=== PATIENT | male | born 1940 | race Caucasian/White ===

== ENCOUNTER 2022-04-28 07:48 | Day surgery (SDC) | payer OTHER ==
--- NOTE | 2022-04-23 13:33 | RAD REPORT ---
EXAM DESCRIPTION: RAD - Chest Pa And Lat (2 Views) - 04/23/2022 1:21 pm CLINICAL HISTORY: Pre op pending TURP Chest pain. COMPARISON: No comparisons TECHNIQUE: PA and lateral views of the chest were obtained. FINDINGS: The lungs are hyperexpanded compatible with COPD. The heart is upper limit of normal in si ze. No fracture or aggressive bony process. IMPRESSION: COPD without acute process identified.
[2022-04-23 13:46] LABS: Absolute Lymphocytes (CBC) 1.6 K/uL (0.7-4.9); Hematocrit 45.6 % (39.6-49.0); Lymphocytes % 24.1 % (15.3-44.8); MPV 9.3 fL (7.6-11.3); RBC Red Blood Cell Count 5.18 M/uL (4.33-5.43)
[2022-04-23 13:50] LABS: Protime INR 1.05
[2022-04-23 13:55] LABS: Potassium 4.3 mmol/L (3.5-5.1)
[2022-04-23 14:00] LABS: SARS-CoV-2 Antigen Rapid Res Negative (Negative)
[~2022-04-28 07:48] MED LIST: AMPICILLIN SODIUM 2 GM in NA CHLORIDE 0.9% 100 ML IVPB SCH; Gentamicin Inj 180 MG in NA CHLORIDE 0.9% 100 ML IV SCH
[2022-04-28] MEDS ORDERED: Ringers Lactate 1,000 ML IV ONE (08:16)
[2022-04-28] MEDS ORDERED: FENTANYL CITR 100 MCG/2 ML ONE (10:24)
[2022-04-28] MEDS ORDERED: LIDOCAINE 1% MPF 5 ML VIAL ONE ×2 (10:24→11:49)
[2022-04-28] MEDS ORDERED: propofoL 200 MG/20 ML VIAL IV ONE (10:24)
[2022-04-28] MEDS ORDERED: ONDANSETRON 4 MG/2 ML VIAL ONE (10:25)
[2022-04-28] MEDS ORDERED: ROCURONIUM 50 MG/5 ML VIAL IV ONE (10:25)
[2022-04-28] MEDS ORDERED: GLYCOPYRROLATE 0.2 MG/ML SYR ONE (11:06)
[2022-04-28] MEDS ORDERED: CODEINE 30MG/APAP 300MG TAB PO PRN (13:54)
[2022-04-28] MEDS ORDERED: OPIUM/BELLADONNA SUPPOS (30-16.2 MG) PR ONE (13:54)
--- NOTE | 2022-04-28 14:33 | OP ---
Surgeon: NANCY MCDANIEL Preoperative Diagnoses: 1.BPH with lower urinary tract obstructive symptoms. 2.Acute urinary retention. Postoperative Diagnoses: 1.BPH with lower urinary tract obstructive symptoms. 2.Acute urinary retention. Principle Procedure: Transurethral resection of the prostate using the bipolar device. Indication For Procedure: Mr. Mccartney is an 82-year-old gentleman, who [facility] experienced acute urinary retention and requiring catheter placement. He had previously undergo ne a TURP in [address] López and underwent outpatient evaluation revealing significant residual l ateral lobar hypertrophy, particularly in the apical mid gland. As a result, he was counseled on opt ions to either proceed directly to surgical therapy or consider urodynamic evaluation first. He elec levy to proceed with surgical therapy. Procedure In Detail: The patient was consented in the preoperative holding area before being transfe rred to operative suite where general anesthesia was induced. He was given ampicillin 2 g and gentam icin approximately 2 mg/kg IV antimicrobial prophylaxis and pneumo boots were provided for DVT prophy laxis. He was placed in the lithotomy position, padded and secured to the table appropriately. His genitalia were prepped using Hibiclens and he was draped in standard fashion. The case was begun usi ng urethral sounds to dilate the meatus and fossa navicularis to 30-Ivorian. Then utilizing the visua l obturator and the 26-Ivorian resectoscope sheath, the scope was used to traverse the urethra and ent er his bladder with ease. As had been previously noted on outpatient cystoscopy, there was significa nt elevation of a median bar with intravesical projection of some prostatic tissue that was undermini ng the trigone and elevating the ureteral orifices. The ureteral orifices were difficult to visualiz e because of this and the prior resection performed in that area. There was significant residual lat eral lobar hypertrophy, particularly in the region of the apical mid gland while the bladder neck was largely patent. There was a moderate degree of anterior overhang as well. As a result, I began res ection by identifying the left ureteral orifice and marking the tissue distal to it. I then progress ed medially across the trigone until the right ureteral orifice was visualized and I again marked the tissue distal to that resecting the elevated component of the prostatic tissue abutting the trigone away in the process. I then continued the resection of the remainder of that elevated median bar all the way down to the level of the verumontanum until a smooth trough was created. Continuing the res ection into the lateral lobar hypertrophy, initially I started at the bladder neck where the intraves ical projecting component was resected. I then continued the resection to involve the anterior zone of the prostate intravesically projecting. Once this was leveled with the bladder, I then continued the resection more distally within the prostatic urethra removing the mid gland lateral lobar hypertr ophy and any anterior lobar hypertrophy intraluminally projecting. I then turned my attention to the apex where situated right at the level of the verumontanum, I resected the right lateral lobar hyper trophy first and then resected the left lateral lobar hypertrophy which was interdigitating and overl apping at the apex. This was resected until the lateral lobes were no longer overlapping and merely just kissing. I then ensured that the remainder of the trough from the bladder neck through to the v erumontanum both inferiorly, laterally, and anteriorly was smooth with no intraluminally obstructing tissue. Once this was completed, I ensured all prostate chips were Ellik evacuated or directly visua lized and removed from the bladder. Careful fulguration was performed at multiple steps along the re section, but in the end, with the bladder decompressed, I carefully fulgurated to ensure complete hem ostasis. In the end, with the bladder decompressed and no fluid in flow, with no venous oozing occur ring, I then left the bladder full and removed the resectoscope. I surveyed the urethra on the way o ut and removed any prostatic chips that fell into the urethra. I then passed a 24-Ivorian 3-way Reddy catheter via the urethra into the bladder with ease and placed 30 cc of sterile water in the balloon . The catheter was placed to moderate traction and CBI with normal saline, and he was taken out of t he lithotomy position. He was then awakened from general anesthesia, transferred to a stretcher, and then transferred to the recovery room in good condition. Complications: None. Discharge Disposition: He should follow up in the Urology Clinic in 3-5 days for catheter removal an d voiding trial. I will discharge him with at least 5-7 days of oral antimicrobial therapy as well a s some pain medication. Subsequent followup can be established between 1-3 months depending on his s ymptomatology and the success of his voiding. CYNTHIA/DEEPTHI Voice ID: [id number] Report ID: [id number]
[2022-04-28 15:06] VITALS: BP 142/74; TEMP 96.5; O2SAT 99
== END 2022-04-28 15:18 | disposition home or self-care (01) ==
LOC: OR 07:48
PROVIDERS: ATTEND Urology
PROC: 0VT08ZZ Resection of Prostate, Via Natural or Artificial Opening Endoscopic (ICD-10-PCS; principal; 2022-04-28 09:15)
DX: N40.1 Benign prostatic hyperplasia with lower urinary tract symptoms (principal); R33.9 Retention of urine, unspecified; Z20.822 Contact with and (suspected) exposure to COVID-19
CPT/HCPCS: 87088; 85025; 87086; 80048; 36415; 85610; 88305; 71046; 87811; 52601; J2704; J1580; J3010; J7120; J2405; J0290

== ENCOUNTER 2023-06-22 08:15 | Day surgery (SDC) | payer OTHER ==
--- NOTE | 2023-06-16 14:39 | RAD REPORT ---
EXAM DESCRIPTION: RAD - Chest Pa And Lat (2 Views) - 06/16/2023 2:28 pm CLINICAL HISTORY: PRE OP Chest pain. TECHNIQUE: PA and lateral views of the chest were obtained. FINDINGS: The lungs are hyperexpanded compatible with COPD. The heart is upper limit of normal in si ze. No fracture or aggressive bony process. IMPRESSION: COPD without acute process identified. The USPSTF recommends annual screening for lung cancer with low-dose CT (LDCT) in adults aged 50 to 80 years who have a 20 pack-year smoking history and currently smoke or have quit within the past 15 years.
[2023-06-16 15:01] LABS: Protime INR 1.05
[2023-06-16 15:02] LABS: Absolute Lymphocytes (CBC) 1.5 K/uL (0.7-4.9); Hematocrit 48.2 % (39.6-49.0); Lymphocytes % 17.1 % (15.3-44.8); MCV 89.7 fL (80-100); MPV 9.3 fL (7.6-11.3); Platelets 182 thou/uL (152-406); RBC Red Blood Cell Count 5.37 M/uL (4.33-5.43)
--- NOTE | 2023-06-17 12:39 | EKG ---
Test Date: 2023-06-16 Test Time: 14:28:07 Student Specialist: ALEX MEASUREMENT RESULTS: Intervals: Rate: 61 MT: 188 QRSD: 144 QT: 398 QTc: 400 Tyler: P: 44 MT: 188 QRS: 135 T: 59 INTERPRETIVE STATEMENTS: Normal sinus rhythm Right bundle branch block Left posterior fascicular block Bifascicular block Abnormal ECG No previous ECG available for comparison Electronically Signed On 06-17-23 12:37:10 CDT by Ton Velez
--- NOTE | 2023-06-21 12:18 | EKG ---
Test Date: 2023-06-16 Test Time: 14:27:36 Reconciling Clerk: ALEX MEASUREMENT RESULTS: Intervals: Rate: 61 TX: 204 QRSD: 138 QT: 390 QTc: 392 Ralph: P: 53 TX: 204 QRS: 131 T: 62 INTERPRETIVE STATEMENTS: Normal sinus rhythm Right bundle branch block Left posterior fascicular block Bifascicular block Abnormal ECG No previous ECG available for comparison Electronically Signed On 06-21-23 12:14:50 CDT by Ton Velez
[2023-06-22] MEDS ORDERED: Ringers Lactate 1,000 ML IV ONE (08:45)
[2023-06-22] MEDS ORDERED: CEFAZOLIN SODIUM 2 GM/VIAL ONE (08:45)
[2023-06-22] MEDS ORDERED: LIDOCAINE 1% MPF 5 ML VIAL ONE (10:31)
[2023-06-22] MEDS ORDERED: FENTANYL CITR 100 MCG/2 ML ONE (10:31)
[2023-06-22] MEDS ORDERED: propofoL 200 MG/20 ML VIAL IV ONE (10:31)
[2023-06-22] MEDS ORDERED: ROCURONIUM 50 MG/5 ML VIAL IV ONE (10:33)
[2023-06-22] MEDS ORDERED: dexAMETHasone 10 MG/ML VIAL ONE (10:54)
[2023-06-22] MEDS ORDERED: ONDANSETRON 4 MG/2 ML VIAL ONE (10:54)
[2023-06-22] MEDS ORDERED: GLYCOPYRROLATE 0.2 MG/ML SYR ONE (10:56)
[2023-06-22] MEDS ORDERED: EPHEDRINE SULF 50 MG/ML VIAL ONE (10:59)
[2023-06-22] MEDS ORDERED: NEOSTIGMINE 1 MG/ML -10 ML VIAL ONE (10:59)
[2023-06-22] MEDS ORDERED: PHENAZOPYRIDINE 100MG TAB PO ONE ×2 (12:15→13:24)
[2023-06-22] MEDS ORDERED: CODEINE 30MG/APAP 300MG TAB PO PRN (12:15)
--- NOTE | 2023-06-22 12:16 | OP ---
Surgeon: NANCY MCDANIEL Preoperative Diagnoses: 1.Bladder neck contracture. 2.Status post transurethral resection of the prostate. Postoperative Diagnoses: 1.Bladder neck contracture. 2.Status post transurethral resection of the prostate. 3.Ureteral orifices very near the edge of contracture. Principal Procedures: 1.Transurethral resection/incision of the bladder neck contracture. 2.Cystoscopy with right double-J ureteral stent placement. 3.Left 5-Gambian ureteral stent placement and removal. 4.A 24-Gambian 3-way Reddy catheter placement. Indication For Procedure: Mr. Mccartney is an 83-year-old gentleman, who had undergone a TURP on [address] López, who subsequently had progressive worsening of his lower urinary symptoms due to BPH complicated by acute prostatitis and epididymal orchitis. He underwent evaluation and was determ ined to potentially benefit from redo TURP, which he underwent on 04/28/2022. He had significant sym ptom improvement following the procedure for over a year until he followed up earlier this month with significant decline in his urinary symptoms over the past 1-2 months. He underwent cystoscopic eval uation revealing the presence of a bladder neck contracture and so a catheter was placed after dilati ng the contracture in the office, over a wire. He presents today for definitive management. Procedure In Detail: The patient was consented in the preoperative holding area before being transfe rred to the operative suite where general anesthesia was induced. He was given Ancef 2 g IV antimicr obial prophylaxis and pneumo boots were provided for DVT prophylaxis. He was placed in the lithotomy position, padded and secured to the table appropriately. His genitalia were prepped with Hibiclens and he was draped in standard fashion. The case was begun using urethral sounds to dilate the meatus and fossa navicularis to 30-Gambian. I then utilized a visual obturator and a 26-Gambian bipolar rese ctoscope sheath to traverse the urethra and enter the bladder via the dilated bladder neck contractur e. The bladder was decompressed of fluid and urine and then surveyed. There were no concerning kevan llary mucosal lesions, foreign bodies, or stones. There was some evidence of catheter trauma posteri lexi only. I thus surveyed for the ureteral orifices, and unfortunately, I identified them within a mm of the contracted bladder neck. As a result, I incised the bladder neck at the 5 and 7 o'clock po sition keeping the ureteral orifices in direct vision; however the right ureteral orifice most distal lower third of the orifice was partially affected by that incision. Because there was some bleeding tissue around that required fulguration, before fulgurating that tissue, I elected to place a ureter al stent to secure the ureteral orifices. I thus placed a 5-Gambian ureteral access catheter into the right distal ureter and advanced a Sensor wire through it, coiling it within the kidney as observed fluoroscopically. I then placed a 6 x 26-Gambian double-J ureteral stent over that wire coiling it in the renal pelvis as observed fluoroscopically. An additional coil cystoscopically was formed in the bladder nicely. On the patient's left side, I then passed the 5-Gambian ureteral access catheter int o his proximal ureter/renal pelvis with ease. Leaving both stents in place, I then replaced the cyst oscope that I was using to place the stent, with the resectoscope began and this time continued to in cise the contracture. I thus incised it further at the 11 o'clock position and at the 1 o'clock posi tion and resected a slight degree of fibrous tissue at the 12 o'clock position before further incisin g the contracture laterally at around the 5 and 7 o'clock positions previously partially incised. An y additional fibrous tissue that was visible was either incised or resected in order to ensure comple te patency of the bladder neck that was observed with the bladder completely decompressed of fluid an d urine. I then carefully fulgurated any bleeding vessels taking care to avoid extensive fulguration in the region of the bladder neck. Once we were generally well hemostatic, I then ensured all prost ate chips and fibrous scar were removed before I then left the bladder full and remove the scope. I then passed a 24-Gambian 3-way Reddy catheter using a catheter guide via his urethra and into his blad hallie. I removed the catheter guide and filled the balloon with 25 cc of sterile water. The catheter was connected to bag drainage, and the urine was very minimal pink. No CBI thus was initiated, and t he CBI port was capped. He was then taken out of the lithotomy position, awakened from general anest hesia, transferred to a stretcher, and then transferred to the recovery room in good condition. Complications: None. Discharge Disposition: He will benefit from having the ureteral stent in place for about 2-3 weeks t o ensure absence of the scar tissue obstructing the ureteral orifice. As a result, somewhere between 3-6 weeks, he should follow up in the Urology Clinic for cystoscopy and right ureteral stent extract ion. CYNTHIA/DEEPTHI Voice ID: [id number] Report ID: [id number]
[2023-06-22 13:00] VITALS: BP 120/66; TEMP 97.1; O2SAT 98
[2023-06-22] MEDS ORDERED: CODEINE 30MG/APAP 300MG TAB ONE (13:24)
--- NOTE | 2023-06-22 14:48 | RAD REPORT ---
EXAM DESCRIPTION: RAD - Urethrocystogrphy Retrograde - 06/22/2023 2:25 pm CLINICAL HISTORY: TURP BLADDER NECK AND RT STENT COMPARISON: No comparisons FINDINGS: Total fluoro time: 0.1 minutes
== END 2023-06-22 14:21 | disposition home or self-care (01) ==
LOC: OR 08:15
PROVIDERS: ATTEND Urology
PROC: 0T768DZ Dilation of Right Ureter with Intraluminal Device, Via Natural or Artificial Opening Endoscopic (ICD-10-PCS; 2023-06-22)
PROC: 0TTC8ZZ Resection of Bladder Neck, Via Natural or Artificial Opening Endoscopic (ICD-10-PCS; principal; 2023-06-22 10:00)
DX: N32.0 Bladder-neck obstruction (principal); E03.9 Hypothyroidism, unspecified; E78.00 Pure hypercholesterolemia, unspecified; Z98.890 Other specified postprocedural states
CPT/HCPCS: 93005 ×2; 87088; 85025; 87086; 80048; 36415; 85610; 71046; 74450; 51610; 52640; 52332; J2704; J2710; J2001; J3010; J1100; J2405; J7120